=== PATIENT | male | born 1950 | race Caucasian/White ===

== ENCOUNTER 2018-12-26 10:18 | Emergency (ER) | payer OTHER, BC ==
[2018-12-26] MEDS ORDERED: Diltiazem 50 MG/10 ML SDV IVPUSH ONE (11:12)
--- NOTE | 2018-12-26 11:42 | EDM.PDOC ---
ED HPI GENERAL MEDICAL PROBLEM - General Chief Complaint: Syncope Stated Complaint: [facility] Time Seen by Provider: 12/26/18 11:06 Source of Information: Reports: Patient, Family (), RN Notes Reviewed History Limitations: Reports: No Limitations - History of Present Illness INITIAL COMMENTS - FREE TEXT/NARRATIVE: The patient states that he is receiving physical therapy for a left shoulder injury. He states that he was at physical therapy this morning - this is his 3rd visit. He states that he developed lightheadedness while seated in a chair, then apparently had a 2-minute syncopal episode. As he was waking up and about to get up, he suffered a second 1-minute syncopal episode. The patient vomited after his second syncopal episode, and had urinary incontinence. There is no report of seizure-like activity. The patient denies having had chest pain, palpitations, dyspnea, or headache either before or after these events. He was uninjured. He denies a history of prior syncopal episodes. Here in the ED, the patient is found be hemodynamically stable, and states that he feels completely back to normal. - Related Data Allergies Allergy/AdvReac Type Severity Reaction Status Date / Time No Known Allergies Allergy Verified 12/26/18 10:27 Past Medical History HEENT History: Reports: Impaired Vision, Retinal Detachment (right) Other HEENT History: wears eyeglasses Cardiovascular History: Reports: High Cholesterol, Hypertension Gastrointestinal History: Reports: GERD (untreated) Musculoskeletal History: Reports: Fracture (left wrist) Oncologic (Cancer) History: Reports: Basal Cell Carcinoma, Squamous Cell Carcinoma - Infectious Disease History Infectious Disease History: Reports: Chicken Pox, Measles, Mumps - Past Surgical History HEENT Surgical History: Reports: Detached Retina (right), Oral Surgery (wisdom teeth extraction), Tonsillectomy GI Surgical History: Reports: Colonoscopy Musculoskeletal Surgical History: Reports: ORIF (left wrist) Oncologic Surgical History: Reports: Other (See Below) (SCC excised from ears, back) Social & Family History - Tobacco Use Smoking Status *Q: Never Smoker Second Hand Smoke Exposure: No - Caffeine Use Caffeine Use: Reports: Coffee - Alcohol Use Alcohol Use History: Yes Alcohol Use Frequency: Socially - Recreational Drug Use Recreational Drug Use: Yes Drug Use in Last 12 Months: No Recreational Drug Type: Reports: Marijuana/Hashish (last smoked around 1972) - Living Situation & Occupation Living situation: Reports: , with Spouse, with Family (1 daughter, 1 granddaughter) Occupation: Retired ED ROS GENERAL - Review of Systems Review Of Systems: ROS reveals no pertinent complaints other than HPI. - Physical Exam Exam: See Below Exam Limited By: No Limitations General Appearance: Alert, WD/WN, No Apparent Distress Eye Exam: Bilateral Eye: EOMI, Normal Inspection Ears: Normal External Exam, Hearing Grossly Normal Nose: Normal Inspection Throat/Mouth: Normal Inspection, Normal Lips, Normal Voice, No Airway Compromise Head Exam: Atraumatic, Normocephalic Neck: Normal Inspection, Full Range of Motion Respiratory/Chest: No Respiratory Distress, Lungs Clear, Normal Breath Sounds, No Accessory Muscle Use Cardiovascular: Normal Peripheral Pulses, Regular Rate, Rhythm, No Edema, No Gallop, No JVD, No Murmur, No Rub GI/Abdominal: Normal Bowel Sounds, Soft, Non-Tender, No Organomegaly, No Distention, No Abnormal Bruit, No Mass (Male) Exam: Deferred Rectal (Males) Exam: Deferred Neuro Exam (Abbreviated): Alert, Oriented, CN II-XII Intact, Normal Cognition, No Motor/Sensory Deficits Back Exam: Normal Inspection, Full Range of Motion, NT Extremities: Normal Inspection, Normal Range of Motion, No Pedal Edema, Normal Capillary Refill Psychiatric: Normal Affect Skin Exam: Warm, Dry, Intact, Normal Color, No Rash EKG INTERPRETATION EKG Date: 12/26/18 Time: 10:26 Rhythm: NSR Rate (Beats/Min): 69 [place]: Normal P-Wave: Present QRS: Normal ST-T: Normal QT: Normal Comparison: NA - No Prior EKG Course - Vital Signs Last Recorded V/S: Last Vital Signs Temp 36.3 C 12/26/18 13:50 Pulse 64 12/26/18 13:50 Resp 32 H 12/26/18 13:50 BP 115/68 12/26/18 13:50 Pulse Ox 99 12/26/18 13:50 Orthostatic Blood Pressure [ 90/69 Standing] Orthostatic Blood Pressure [ 107/66 Sitting] Orthostatic Blood Pressure [ 114/69 Supine] - Orders/Labs/Meds Labs: Laboratory Tests 12/26/18 12/26/18 12/26/18 Range/Units 11:01 11:01 11:01 WBC 9.26 H (4.23-9.07) K/mm3 RBC 5.16 (4.63-6.08) M/mm3 Hgb 16.5 (13.7-17.5) gm/L Hct 49.1 (40.1-51.0) % MCV 95.2 H (79.0-92.2) fl MCH 32.0 (25.7-32.2) pg MCHC 33.6 (32.2-35.5) g/dl RDW Std Deviation 43.5 (35.1-43.9) fL Plt Count 237 (163-337) K/mm3 MPV 9.9 (9.4-12.3) fl Neutrophils % (Manual) 51 (40-60) % Band Neutrophils % 0 (0-10) % Lymphocytes % (Manual) 37 (20-40) % Atypical Lymphs % 0 % Monocytes % (Manual) 10 (2-10) % Eosinophils % (Manual) 2 (0.8-7.0) % Basophils % (Manual) 0 L (0.2-1.2) Platelet Estimate Adequate RBC Morph Comment Normal D-Dimer, Quantitative 0.33 (0.19-0.50) mg/L Sodium 138 (136-145) mEq/L Potassium 3.7 (3.5-5.1) mEq/L Chloride 101 (98-107) mEq/L Carbon Dioxide 22 (21-32) mEq/L Anion Gap 18.7 H (5-15) BUN 27 H (7-18) mg/dL Creatinine 1.4 H (0.7-1.3) mg/dL Est Cr Clr Drug Dosing 53.59 mL/min Estimated GFR (MDRD) 51 (>60) mL/min BUN/Creatinine Ratio 19.3 H (14-18) Glucose 118 H (80-115) mg/dL Calcium 9.4 (8.5-10.1) mg/dL Magnesium 2.2 (1.8-2.4) mg/dl Total Bilirubin 0.9 (0.2-1.0) mg/dL AST 19 (15-37) U/L ALT 31 (16-63) U/L Alkaline Phosphatase 77 (46-116) U/L Troponin I < 0.017 (0.00-0.056) ng/mL Total Protein 7.7 (6.4-8.2) g/dl Albumin 4.3 (3.4-5.0) g/dl Globulin 3.4 gm/dL Albumin/Globulin Ratio 1.3 (1-2) Meds: Medications Discontinued Medications Generic Name Dose Route Start Last Admin Trade Name Andrew PRN Reason Stop Dose Admin Sodium Chloride 500 mls @ 1,000 mls/hr 12/26/18 12:07 12/26/18 12:19 Normal Saline IV 12/26/18 12:36 1,000 mls/hr .BOLUS ONE Administration - Re-Assessments/Exams Free Text/Narrative Re-Assessment/Exam: 12/26/18 11:39 There are 4 main reasons why patients suffer syncope: 1. Vasovagal 2. Drugs, either prescription or illicit, contributing to hypotension 3. Orthostasis, due to intravascular depletion or vascular occlusion, such as with a PE 4. Cardiac dysrhythmia Because cardiac dysrhythmias can be difficult to diagnose, the first 3 causes should be ruled out first. Since the patient is normotensive here, I don't suspect drug-related hypotension, however, I have ordered orthostatics. In addition, I have ordered a D-dimer and troponin, along with other blood work. 12/26/18 12:07 The patient is not quite orthostatic, but it is close, therefore I have ordered a 500 mL bolus of NS. 12/26/18 13:39 Test results discussed with the patient and his . Today's workup, with the exception of the finding of mild renal insufficiency, is entirely unremarkable, and does not explain the cause of the patient's syncope. The patient is likely a bit intravascularly depleted, but I doubt that it was enough to cause him to pass out twice. I suspect that he passed out to a vasovagal reaction, although I cannot prove that. If he has no further similar episodes, I don't believe anything needs to be done, however, if he does have additional episodes of syncope, then additional workup will be needed. I advised the patient to follow- up with [facility] to let them know what happened. Departure - Departure Time of Disposition: 13:40 Disposition: Home, Self-Care 01 Condition: Good Clinical Impression: Syncope - Discharge Information *PRESCRIPTION DRUG MONITORING PROGRAM REVIEWED*: Not Applicable *COPY OF PRESCRIPTION DRUG MONITORING REPORT IN PATIENT BORIS: Not Applicable Instructions: Syncope, [id number] Referrals: Nolvia Salvador MD [Primary Care Provider] - Forms: ED Department Discharge Additional Instructions: You were seen in the emergency room after passing out at physical therapy, twice. Workup in the ER included blood work, positional blood pressure checks, and an ECG. Your workup found that you have mild kidney dysfunction, with a BUN/Cr of 27/ 1.4. Because we do not have prior labs to compare, we cannot tell if this is new or old. The remainder of your workup was unremarkable, and does not explain the cause of your passing out. We recommend that you follow-up with your PCP at the [facility], to let them know what has happened. They may wish to order additional testing. If any other problems, please do not hesitate to return to the ER.
[2018-12-26] MEDS: Sodium Chloride 0.9% 500 ML IV ONE (12:19)
== END 2018-12-26 13:50 | disposition home or self-care (01) ==
LOC: SUPCPDRO 10:18 → JD.ED 10:18
DX: R55 Syncope and collapse (principal); I10 Essential (primary) hypertension
CPT/HCPCS: 36415; 80053; 83735; 84484; 85007; 85027; 85379; 93005; 99284; J7040; 93010; 99283

== ENCOUNTER 2023-05-17 19:43 | Emergency (ER) | payer BC, OTHER ==
[2023-05-17] MEDS ORDERED: Fluorescein 1 MG Ophth Strip EYERT ONE (20:24)
[2023-05-17] MEDS ORDERED: Proparacaine 0.5% Ophth Soln 15 ML Bottle EYERT ONE (20:25)
[2023-05-17] MEDS ORDERED: Ketorolac 0.5% Ophth Soln 5 ML Bottle EYERT ONE (20:50)
[2023-05-17] MEDS ORDERED: Ciprofloxacin 0.3% Ophth Soln 5 ML Bottle EYERT ONE (20:51)
== END 2023-05-17 21:17 | disposition home or self-care (01) ==
LOC: JD.ED 19:43
DX: S05.01XA Injury of conjunctiva and corneal abrasion without foreign body, right eye, initial encounter (principal); I10 Essential (primary) hypertension; W22.09XA Striking against other stationary object, initial encounter
CPT/HCPCS: 99283; A9270; J3490